=== PATIENT | male | born 2000 | race Caucasian/White ===

== ENCOUNTER 2024-08-23 06:24 | Day surgery (SDC) | payer OTHER, SELFPAY | END 2024-08-23 14:05 | disposition home or self-care (01) | LOC: GI 06:24 | PROVIDERS: ATTENDING PHYSICIAN Internal Medicine Gastroenterology | DX: R13.10 Dysphagia, unspecified (principal); K22.2 Esophageal obstruction; K22.89 Other specified disease of esophagus; K20.0 Eosinophilic esophagitis | CPT/HCPCS: 43249; 43239; 88305 ==